=== PATIENT | male | born 1955 | race Caucasian/White ===

== ENCOUNTER 2020-01-31 21:18 | Inpatient (IN) | payer MEDICAID, SELFPAY ==
[~2020-01-31] VITALS: Ht 172.7 cm; Wt 81.6 kg
--- NOTE | 2020-01-31 21:18 | NUR ---
NERY FARFAN TAKEN TO BED 10
[2020-01-31] MEDS ORDERED: NACL 0.9% 1,000 ML IV ONE (21:30)
[2020-01-31 21:36] VITALS: BP 120/83
--- NOTE | 2020-01-31 21:36 | NUR ---
IN BED 10 , WAS BIBA, C/O ALOC, CONFUSION, COVID (+). PT IS RESTLESS AND UNCOOPERATIVE. 20G NOTED RIGHT HAND WITH NS
--- NOTE | 2020-01-31 21:51 | NUR ---
pt placed on high flow nasal cannula 40l/100%. dr. wolff aware.will cont to monitor
[2020-01-31 22:09] LABS: HEMOGLOBIN 16.2 g/dL (12.0-18.0); MEAN CORPUSCULAR HEMOGLOBIN 31 pg (27-31); MEAN CORPUSCULAR HGB CONC 32 g/dL (33-37); MEAN CORPUSCULAR VOLUME 94.8 fL (80-94); PLATELET COUNT (AUTO) 451 K/uL (140-450); RED BLOOD CELL COUNT(AUTO) 5.27 MIL/uL (4.20-6.10); RED CELL DISTRIBUTION WIDTH 14.1 % (11.6-13.7); WHITE BLOOD COUNT (AUTO) 20.3 K/uL (4.8-10.8)
[2020-01-31] MEDS ORDERED: ETOMIDATE 20 MG/10 ML VIAL IVP ONE (22:18)
--- NOTE | 2020-01-31 22:20 | NUR ---
HAS BECOME INCREASINGLY RESTLESS AND CONFUSED, PULLED IV OUT. 18G ESTABLISHED RIGHT A/C. NS BOLUS BEGUN. BG = HIGH. RR = 60 BPM. IS FEBRILE AND RESTLESS. DR. MILLER PREPARING FOR CENTRAL LINE INSERTION
--- NOTE | 2020-01-31 22:22 | NUR ---
verbal order from dr. bains to obtain stat abg. abg is 7.37,23.9,49.5,13.6. results shown to dr. bains
[2020-01-31] MEDS ORDERED: NOREPINEPHRINE 4 MG/4 ML VIAL IV ONE (22:23)
[2020-01-31] MEDS ORDERED: VANCOMYCIN 1GM/DEXT 5% PREMIX 200 ML IV ONE (22:30)
[2020-01-31] MEDS ORDERED: VANCOMYCIN PER PHARMACY MC PRN (22:30)
[2020-01-31] MEDS ORDERED: PIPERACILLIN/TAZOBACTAM 3.375 GM in DEXTROSE 5% 50 ML IV ONE (22:30)
[2020-01-31] MEDS ORDERED: AZITHROMYCIN 500 MG in DEXTROSE 5% 250 ML IV ONE (22:30)
[2020-01-31 22:40] LABS: ALBUMIN 2.6 g/dL (3.4-5.0); ANION GAP 31.2 (8-16); ASPARTATE AMINOTRANSFERASE 48 U/L (15-37); CARBON DIOXIDE 16.9 mmol/L (21-32); CHLORIDE 105 mmol/L (98-107); FREE T4 (FREE THYROXINE) 1.28 ng/dL (0.76-1.46); GFR ARICAN-AMERICAN 44 mL/min (>90); SODIUM SERUM 147 mmol/L (136-145); THYROID STIMULATING HORMONE 0.09 uIU/mL (0.34-3.74); TOTAL BILIRUBIN 0.7 mg/dL (0.0-1.0); UREA NITROGEN, BLOOD 50 mg/dL (7-18)
--- NOTE | 2020-01-31 22:40 | NUR ---
preparing for intubation. ETOMIDATE AND SUCCINYLCHOLINE ORDERED
--- NOTE | 2020-01-31 22:45 | NUR ---
INTUBATED 8FR., 24CM TO THE LIP PACED ON BUR 20, VT 500CC, PEEP 8CM, FIO2 100%
[2020-01-31] MEDS ORDERED: PROPOFOL 1000 MG/100 ML PREMIX 100 ML IV ONE (22:50)
[2020-01-31 22:55] VITALS: BP 142/101
[2020-01-31 22:55] LABS: ACETAMINOPHEN < 0.5 ug/ml (10-30); GLUCOSE 831 mg/dL (74-106); POTASSIUM 6.1 mmol/L (3.5-5.1); SALICYLATE < 2.8 mg/dL (2.8-20.0)
--- NOTE | 2020-01-31 22:57 | NUR ---
PATIENT INTUBATED BY DR. BECKMAN. 8.0 @ 24 CM. VENT PLUGGED INTO BED OUTLET. BMV AT BEDSIDE. ETT SECURED. ALARMS SET. WILL CONT TO MONITOR
--- NOTE | 2020-01-31 23:00 | NUR ---
PROPOFOL BEGUN AT 5MCG/KG/MIN
[2020-01-31] MEDS ORDERED: INSULIN REGULAR, HUMAN 100 UNIT in NACL 0.9% 100 ML IV ONE ×2 (23:05)
[2020-01-31] MEDS ORDERED: CALCIUM GLUCONATE 10% 1000 MG/10 ML VIAL IVP ONE (23:05)
[2020-01-31] MEDS ORDERED: INSULIN REGULAR, HUMAN 100 UNIT/ML VIAL IV SCH (23:05)
[2020-01-31] MEDS ORDERED: ALBUTEROL 0.083% 2.5 MG/3 ML NEBU INH ONE (23:05)
--- NOTE | 2020-01-31 23:05 | NUR ---
PROPOFOL INCREASED TO 10 MCG./KG/MIN
[2020-01-31 23:07] LABS: LYMPHOCYTES % (MANUAL) 2 % (20-46); MONOCYTES % (MANUAL) 6 % (5-12)
--- NOTE | 2020-01-31 23:10 | NUR ---
PROPOPFOL INCREASED TO 15 MCG/KG/MIN
--- NOTE | 2020-01-31 23:15 | NUR ---
PROPOFOL INCREASED TO 20 MCG/KG/MIN
[2020-01-31 23:18] LABS: CKMB RELATIVE INDEX 0.9 (0.0-2.5); CREATINE KINASE MB 4.7 ng/mL (0-3.6)
--- NOTE | 2020-01-31 23:20 | NUR ---
PROPOFOL INCREASED TO 25 MCG/KG/MIN
--- NOTE | 2020-01-31 23:25 | NUR ---
PROPOFOL INCREASED TO 30 MCG/KG/MIN
[2020-02-01 00:14] LABS: PROTHROMBIN TIME 12.7 secs (10.8-13.4)
[2020-02-01 00:18] LABS: C-REACTIVE PROTEIN QUANT 9.1 mg/dL (0.0-0.9)
--- NOTE | 2020-02-01 00:26 | NUR ---
INC RATE TO [address] MILLER AWARE
[2020-02-01] MEDS ORDERED: NACL 0.9% 1,000 ML IV ONE ×3 (00:55→01:50)
--- NOTE | 2020-02-01 00:58 | NUR ---
PROPOFOL INCREASED TO 50 MCG/KG/MIN
--- NOTE | 2020-02-01 01:00 | NUR ---
F/C INSERTED WITH IMMEDIATE RETURN ADINA COLORED URINE
[2020-02-01] MEDS ORDERED: ALBUTEROL HFA MDI 90 MCG/ACTUATION 8 GM INH PRN (01:50)
[2020-02-01] MEDS ORDERED: ONDANSETRON 4 MG/2 ML VIAL IM/IVP PRN (01:50)
[2020-02-01] MEDS ORDERED: INSULIN REGULAR, HUMAN 100 UNIT/ML VIAL IVP SCH (01:50)
[2020-02-01] MEDS ORDERED: HYDROcodone/APAP 7.5/325 MG 1 TAB PO PRN (01:50)
[2020-02-01] MEDS ORDERED: ALBUTEROL SULFATE/IPRATROPIU 3 ML SOL IH PRN ×2 (01:50)
[2020-02-01] MEDS ORDERED: INSULIN REGULAR, HUMAN 100 UNIT in NACL 0.9% 100 ML IV SCH ×2 (01:50)
[2020-02-01] MEDS ORDERED: DOCUSATE SODIUM 100 MG GELCAP PO PRN (01:50)
[2020-02-01] MEDS ORDERED: POTASSIUM CHLORIDE 10 MEQ TABER PO PRN (01:50)
[2020-02-01] MEDS: NACL 0.9% 1,000 ML IV SCH ×4 (02:00→14:34)
[2020-02-01] MEDS: ALBUTEROL SULFATE/IPRATROPIU 3 ML SOL IH SCH ×5 (02:00→23:40)
[2020-02-01] MEDS ORDERED: PROPOFOL 1000 MG/100 ML PREMIX 100 ML IV ONE ×2 (02:43→05:20)
[2020-02-01 03:22] LABS: APPEARANCE,URINE CLEAR (CLEAR); BILIRUBIN,URINE NEGATIVE (NEGATIVE); BLOOD, URINE 2+ (NEGATIVE); COLOR,URINE YELLOW (YELLOW); LEUKOCYTE ESTERASE ,URINE NEGATIVE (NEGATIVE); NITRITE, URINE NEGATIVE (NEGATIVE); PH,URINE 5.5 (5.0-9.0); UGLUCOSE 3+ (NEGATIVE)
[2020-02-01 03:32] LABS: RBC,URINE 0-5 /HPF (0-5)
--- NOTE | 2020-02-01 04:00 | NUR ---
PROPOFOL CONTINUES. PT SEDATED. ASSISTED WITH POSITIONING. F/C DRAINING ADINA COLORED URINE.
[2020-02-01 04:47] LABS: ANION GAP 29.5 (8-16); CARBON DIOXIDE 15.5 mmol/L (21-32); CREATININE 2.3 mg/dL (0.6-1.3)
[2020-02-01] MEDS ORDERED: ALBUTEROL 0.083% 2.5 MG/3 ML NEBU INH ONE (05:26)
[2020-02-01] MEDS ORDERED: ALBUTEROL 0.083% 2.5 MG/3 ML NEBU INH SCH ×2 (05:30→05:50)
--- NOTE | 2020-02-01 05:32 | NUR ---
Adama valenzuela in [facility] - 02/01/[address] at [address] MILLER INSERTING RIGHT FEMORAL TRIPLE LUMEN CATHETER.
[2020-02-01 05:43] LABS: MAGNESIUM 3.2 mg/dL (1.8-2.4)
[2020-02-01 05:44] LABS: PHOSPHORUS 7.9 mg/dL (2.5-4.9)
--- NOTE | 2020-02-01 06:15 | NUR ---
INSULIN DRIP BEGUN AT 8U/HR
[2020-02-01] MEDS ORDERED: INSULIN REGULAR, HUMAN 100 UNIT in NACL 0.9% 100 ML IV ONE ×2 (06:50)
[2020-02-01] MEDS ORDERED: ALBUTEROL SULFATE/IPRATROPIU 3 ML SOL IH SCH (07:00)
[2020-02-01] MEDS: BUDESONIDE 0.5 MG/2 ML NEBU INH SCH (07:02)
[2020-02-01] MEDS ORDERED: LACTATED RINGERS 500 ML IV ONE (07:05)
[2020-02-01] MEDS ORDERED: LACTATED RINGERS 1,000 ML IV ONE (07:05)
[2020-02-01] MEDS ORDERED: BUDESONIDE 0.25 MG/2 ML NEBU INH SCH (07:30)
[2020-02-01] MEDS ORDERED: cefTRIAXone 1,000 MG VIAL ONE (07:34)
[2020-02-01] MEDS ORDERED: PIPERACILLIN/TAZOBACTAM 3.375 GM VIAL IV ONE ×2 (08:17→16:08)
[2020-02-01] MEDS ORDERED: MIDAZOLAM MDV 50 MG in NACL 0.9% 40 ML IV PRN (08:25)
--- NOTE | 2020-02-01 08:29 | NUR ---
NOTIFIED DR SARABIA OF PT BS OF HIGH READING PER DR SARABIA TO KEEP INSULIN DRIP AT 8 UNIT/HR UNTIL PT BLOOD SUGAR IS 200., THEN PLACE AT 4UNIT AT 200 BLOOD GLUCOSE. ALSO SWITCH NORMAL SALINE TO D5 1/2NS (TITRATE TO KEEP BS BETWEEN 150-250)
--- NOTE | 2020-02-01 08:34 | NUR ---
PER DR SARABIA TO ONLY HAVE 3L TOTAL BOLUSED FROM PREVIOUS MEDICATIONS ORDERED. THEN START NORMAL SALINE AT 250
--- NOTE | 2020-02-01 08:42 | NUR ---
REVIEWED ABG SAMPLE REPORT WITH DR. TOMMIE CASTAÑEDA DIAGNOSTIC MONITOR SATURATION 90%-91% SAMPLE REPORT 92% POST ABG PUNCTURE CENTRIFUGAL EXTRACTOR OPERATOR INCREASED FIO2 TO 80% ERMD AWARE AND STATED "OK" NO NEW ORDERS FROM ERMD
[2020-02-01 08:43] LABS: CHOL/HDL RATIO 6.9 (1-4.5)
[2020-02-01 08:43] LABS: MAGNESIUM 2.9 mg/dL (1.8-2.4); PHOSPHORUS 6.5 mg/dL (2.5-4.9)
[2020-02-01 08:55] LABS: CREATININE 3.2 mg/dL (0.6-1.3)
--- NOTE | 2020-02-01 08:59 | NUR ---
NOTIFIED DR SARABIA OF PT DROPPING BLOOD PRESSURE, STATES TO START LEVOPHED DOUBLE CONCENTRATION DRIP.
[2020-02-01] MEDS ORDERED: ACETAMINOPHEN 325 MG SUPP RC SCH (09:00)
--- NOTE | 2020-02-01 09:01 | NUR ---
PHARMACY CALLED, STATES THEY WILL BRING LEVOPHED DRIP MEDICATION SOON THEY CAN
[2020-02-01] MEDS ORDERED: MIDAZOLAM MDV 100 MG in NACL 0.9% 80 ML IV PRN (09:05)
--- NOTE | 2020-02-01 09:30 | NUR ---
DR SARABIA AWARE OF DVT IN LEFT POPLITEAL AND CALF VEINS. STATES WILL PUT IN ORDER FOR HEPARIN
[2020-02-01 10:12] LABS: ANION GAP 22.4 (8-16); POTASSIUM 6.4 mmol/L (3.5-5.1)
--- NOTE | 2020-02-01 10:35 | NUR ---
DR SARABIA MADE AWARE OF CRITICAL VALUES OF K, BUN, CALCIUM, AND CREAT RATHER THAN DR CASTAÑEDA
--- NOTE | 2020-02-01 11:00 | NUR ---
PER DR SARABIA WILL NOT GO WITH HEPARIN DRIP, IS OKAY WITH ORDERED LOVENOX FOR DVT
[2020-02-01] MEDS ORDERED: VANCOMYCIN 1,000 MG VIAL ONE (11:28)
--- NOTE | 2020-02-01 11:30 | NUR ---
COURTESY CALL TO DR. IVONE GILLIS REVIEWED ABG SAMPLE REPORT NEW ORDER: TITRATED FIO2 KEEP SATURATION GREATER THAN 88%
[2020-02-01] MEDS: ENOXAPARIN 80 MG/0.8 ML SYR SUBQ SCH (11:47)
[2020-02-01 13:12] LABS: ANION GAP 20.7 (8-16); CARBON DIOXIDE 20.9 mmol/L (21-32); CREATININE 2.6 mg/dL (0.6-1.3); POTASSIUM 5.6 mmol/L (3.5-5.1)
[2020-02-01 13:13] LABS: MAGNESIUM 2.8 mg/dL (1.8-2.4); PHOSPHORUS 5.8 mg/dL (2.5-4.9)
[2020-02-01] MEDS ORDERED: AZITHROMYCIN 500 MG INJ VIAL IV ONE (14:12)
--- NOTE | 2020-02-01 14:15 | NUR ---
SATURATION 87%-88% ON FIO2 OF 90% PEEP 8cmH2O INCREASED FIO2 TO 100% KERMIT/RN NOTIFIED
--- NOTE | 2020-02-01 14:45 | NUR ---
PER PHARMACY OKAY TO START ZOSYN LONG MORE THAN 4 HOUR GAP
[2020-02-01] MEDS: AZITHROMYCIN 250 MG TAB PO SCH (14:50)
[2020-02-01] MEDS: ASCORBIC ACID 500 MG TAB PO SCH (14:50)
[2020-02-01] MEDS: ZINC SULF 220 MG CAP PO SCH (14:50)
--- NOTE | 2020-02-01 14:51 | NUR ---
PT DOES NOT HAVE NGT FOR [address] SARABIA MADE AWARE, WILL BE PLACING NGT AND ORDERING CXR PER DR SARABIA. PER DR CORNELL MENDOSA THAT 0900 MEDS NOT GIVEN,
[2020-02-01] MEDS ORDERED: ACETAMINOPHEN 325 MG SUPP RC ONE (15:47)
--- NOTE | 2020-02-01 16:18 | NUR ---
PER DR SARABIA TO INSULIN DRIP 4UNIT/HR AND RUN D5 1/2 NORMAL SALINE, TITRATE BY 25ML/HR TO KEEP BLOOD SUGAR ABOVE 150.
[2020-02-01] MEDS: PIPERACILLIN/TAZOBACTAM 3.375 GM in DEXTROSE 5% 50 ML IV SCH ×2 (16:32→21:00)
[2020-02-01 16:36] LABS: BARBITURATE, URINE NEGATIVE ng/ml (NEG <=200); BENZODIAZEPINE, URINE NEGATIVE ng/mL (NEG <=200); CANNABINOID, URINE NEGATIVE ng/mL (NEG <=50); COCAINE, URINE NEGATIVE ng/mL (NEG <=300); OPIATE, URINE NEGATIVE ng/mL (NEG <=2000); PHENCYCLIDINE SCREEN,URINE NEGATIVE ng/mL (NEG <=25)
[2020-02-01] MEDS: DEXT 5% / NACL 0.45% 1,000 ML IV SCH ×2 (17:37→22:17)
--- NOTE | 2020-02-01 17:51 | NUR ---
DR SARABIA MADE AWARE PT TEMP 103.5, COOLING MEASURES APPLIED TO EXTREMITIES
[2020-02-01] MEDS ORDERED: IBUPROFEN 400 MG TAB PO SCH (17:55)
--- NOTE | 2020-02-01 18:00 | NUR ---
PIPE FITTER SUPERVISOR REVIEWED E MAR AT 0640 NO DOUNEB INDICATED FOR DAYS 0700/1100/1500 NOT GIVEN ENDORSED TO NOC SHIFT
--- NOTE | 2020-02-01 18:08 | NUR ---
ORAL GASTRIC TUBE 16F PLACED AT THIS TIME, WAITING FOR CHEST XRAY TO CONFIRM PLACEMENT
--- NOTE | 2020-02-01 18:23 | NUR ---
700ML OF CLEAR ADINA URINE DRAINED FROM WEST CATHETER
--- NOTE | 2020-02-01 18:31 | NUR ---
DR SARABIA INFORMED ABOUT PT CHEST APPEARING ENLARGED, STATES HE WILL WAIT FOR CXR TOMORROW
[2020-02-01] MEDS ORDERED: IBUPROFEN 400 MG TAB ONE (18:32)
--- NOTE | 2020-02-01 18:41 | NUR ---
TEMP 102.7, MOTRIN 400MG GIVEN PER DR SARABIA REQUEST
[2020-02-01 18:55] LABS: MAGNESIUM 2.6 mg/dL (1.8-2.4)
[2020-02-01 19:01] LABS: ANION GAP 16.4 (8-16); CARBON DIOXIDE 24.7 mmol/L (21-32); CREATININE 2.6 mg/dL (0.6-1.3)
--- NOTE | 2020-02-01 19:20 | NUR ---
PROPOFOL CHARTED IN IV SPREADSHEET IS IN MCG/KG/MIN, NOT ML/HR. NOREPINEPHRINE CHARTED IN IV SPREADSHEET IS IN MCG/HR, NOT ML/HR
--- NOTE | 2020-02-01 19:21 | NUR ---
REPORT RECEIVED FROM KERMIT CHARLES
--- NOTE | 2020-02-01 19:31 | NUR ---
RECEIVED PT ON 100% FIO2, SATURATION 99, TITRATED TO 90%, PT WAS PEAK PRESSURING OVER 50 CMH2O, TITRATED PEEP TO 6, TO HELP PREVENT EXCESSIVE PRESSURE WILL CONTINUE TO MONITOR IF NEEDED WILL TITRATE BACK TO PEEP OF 8, AND SWITCH TO PRESSURE CONTROL, DR WILL BE NOTIFIED IF MODE IS SWITCHED.
[2020-02-01 19:38] LABS: POTASSIUM 6.1 mmol/L (3.5-5.1)
--- NOTE | 2020-02-01 19:51 | NUR ---
PT REMAINS INTUBATED, RECEIVING NOREPI AT 10 MCG, PROPROFAL 65 MCG, INSULIN 4 UNIT, AND D5 1/2 NS AT 25ML/HR. RASS -3. PT REMAINS ON BEDSIDE MONITOR HR 133, O2 SAT 95%, RESP 32, TEMP 100.9, B/P 125/31
--- NOTE | 2020-02-01 20:00 | NUR ---
LAB AT BEDSIDE
--- NOTE | 2020-02-01 20:20 | NUR ---
LAB CALLED WITH CRITICAL VALUES POTASSIUM 6.1, BUN [address] SARABIA MADE AWARE
[2020-02-01] MEDS: ACETAMINOPHEN 325 MG TAB PO PRN (20:35)
[2020-02-01 20:45] LABS: ANION GAP 17.5 (8-16); CARBON DIOXIDE 23.5 mmol/L (21-32); CREATININE 2.8 mg/dL (0.6-1.3); MAGNESIUM 2.6 mg/dL (1.8-2.4); PHOSPHORUS 5.7 mg/dL (2.5-4.9)
--- NOTE | 2020-02-01 20:50 | NUR ---
SPOKE TO DR. BURRIS REGARDING CRITICAL ABG. WANTED ORDERS TO TITRATE TIDAL VOLUME TO 450 AND INCREASE PEEP TO 8. FIOS ALSO TITRATED TO 80%. PATIENT VITAL REMAINS STABLE. WILL CONT TO MONITOR
[2020-02-01] MEDS ORDERED: VANCOMYCIN 750 MG in NACL 0.9% 250 ML IV SCH (21:00)
--- NOTE | 2020-02-01 21:42 | NUR ---
CURRENT TEMP 98.9. PT HAS BED IN ICU WILL CALL FOR REPORT.
[2020-02-01] MEDS: BLOOD GLUCOSE MONITORING 1 DEV DEV FS SCH ×3 (21:47→23:00)
[2020-02-01] MEDS ORDERED: AMMONIA AROMATIC 1 INHL INH ONE (22:00)
--- NOTE | 2020-02-01 22:51 | NUR ---
Patient will be admitted to care of DR SARABIA. Admited to ICU. Will go to room 131B. Belongings list completed. Report to WALE CHARLES.
[2020-02-01] MEDS ORDERED: NOREPINEPHRINE 4 MG/4 ML VIAL IV ONE (23:24)
[2020-02-01 23:40] VITALS: BP 64/47
[2020-02-02] VITALS (27 sets, daily range): BP systolic 76–118; BP diastolic 47–86
[2020-02-02] MEDS: PHENYLEPHRINE 40 MG in NACL 0.9% 250 ML IV PRN ×3 (00:45→21:00)
[2020-02-02] MEDS ORDERED: PHENYLEPHRINE 10 MG/ML VIAL ONE ×2 (00:47→05:43)
--- NOTE | 2020-02-02 01:23 | NUR ---
PER DAVID RT, DR. BURRIS WANTS NO CHANGES ON VENT PER ABG RESULTS
[2020-02-02 01:25] LABS: ANION GAP 18.9 (8-16); CARBON DIOXIDE 21.6 mmol/L (21-32); CREATININE 3.5 mg/dL (0.6-1.3)
[2020-02-02 01:32] LABS: POTASSIUM 6.5 mmol/L (3.5-5.1)
[2020-02-02 01:46] LABS: MAGNESIUM 1.9 mg/dL (1.8-2.4); PHOSPHORUS 6.8 mg/dL (2.5-4.9)
[2020-02-02] MEDS: NACL 0.9% 1,000 ML IV SCH ×7 (01:50→21:50)
[2020-02-02] MEDS: NOREPINEPHRINE 8 MG in DEXTROSE 5% 250 ML IV PRN ×3 (02:00→15:14)
--- NOTE | 2020-02-02 02:00 | NUR ---
NOTIFIED DR. SARABIA, ABOUT K+ 6.1; AND PTS LOW BP; NEW ORDERS RECEIVED.CARRIED OUT
[2020-02-02] MEDS ORDERED: SODIUM ZIRCONIUM CYCLOSILICATE 10 GM POWD.PACK PO SCH (02:35)
[2020-02-02] MEDS: PROPOFOL 1000 MG/100 ML PREMIX 100 ML IV PRN ×2 (02:58→16:17)
--- NOTE | 2020-02-02 04:47 | NUR ---
DR. BURRIS DID NOT WANT 0400 ABG. WILL ENDORSE TO DAY SHIFT FOR 0800 ABG
[2020-02-02] MEDS: PIPERACILLIN/TAZOBACTAM 3.375 GM in DEXTROSE 5% 50 ML IV SCH ×3 (05:00→21:00)
[2020-02-02] MEDS: ALBUTEROL SULFATE/IPRATROPIU 3 ML SOL IH SCH ×3 (07:09→15:00)
[2020-02-02] MEDS: BUDESONIDE 0.5 MG/2 ML NEBU INH SCH (07:09)
[2020-02-02 07:49] LABS: ALBUMIN 1.9 g/dL (3.4-5.0); ANION GAP 21.8 (8-16); CARBON DIOXIDE 18.8 mmol/L (21-32); CREATININE 3.4 mg/dL (0.6-1.3); TOTAL BILIRUBIN 0.5 mg/dL (0.0-1.0)
[2020-02-02 08:00] LABS: CARBON DIOXIDE 23.4 mmol/L (21-32)
[2020-02-02 08:09] LABS: CREATININE 3.4 mg/dL (0.6-1.3)
[2020-02-02 08:11] LABS: ANION GAP 16.2 (8-16); POTASSIUM 6.6 mmol/L (3.5-5.1)
[2020-02-02 08:21] LABS: MAGNESIUM 1.9 mg/dL (1.8-2.4); PHOSPHORUS 6.9 mg/dL (2.5-4.9)
[2020-02-02 08:28] LABS: POTASSIUM 6.6 mmol/L (3.5-5.1)
[2020-02-02] MEDS: BLOOD GLUCOSE MONITORING 1 DEV DEV FS SCH ×16 (08:49→23:50)
[2020-02-02] MEDS: ENOXAPARIN 80 MG/0.8 ML SYR SUBQ SCH (09:00)
[2020-02-02] MEDS: AZITHROMYCIN 250 MG TAB PO SCH (09:09)
[2020-02-02] MEDS: ZINC SULF 220 MG CAP PO SCH (09:09)
[2020-02-02] MEDS: ASCORBIC ACID 500 MG TAB PO SCH (09:09)
[2020-02-02] MEDS: ACETAMINOPHEN 325 MG TAB PO PRN ×2 (10:27→16:17)
--- NOTE | 2020-02-02 10:30 | NUR ---
PT WITH FEVER 100.8, TYENOL GIVEN
--- NOTE | 2020-02-02 11:00 | NUR ---
ABG RESULTS GIVEN TO , NEW VENT SETTINGS AC 26, VT 500ml, PEEP 8 AND FIO2 100%.
[2020-02-02 13:24] LABS: BASOPHILS % (AUTO) 0.2 % (0.0-2.0); HEMATOCRIT 44.6 % (36-52); HEMOGLOBIN 14.2 g/dL (12.0-18.0); LYMPHOCYTES # (AUTO) 1.7 K/uL (2.0-11.5); LYMPHOCYTES % (AUTO) 6.9 % (20.5-51.1); MEAN CORPUSCULAR HEMOGLOBIN 31 pg (27-31); MEAN CORPUSCULAR HGB CONC 32 g/dL (33-37); MEAN CORPUSCULAR VOLUME 95.9 fL (80-94); MONOCYTES # (AUTO) 0.9 K/uL (0.8-1.0); MONOCYTES % (AUTO) 3.8 % (1.7-9.3); NEUTROPHILS # (AUTO) 22.4 K/uL (1.8-7.7); NEUTROPHILS % (AUTO) 89.1 % (42.2-75.2); PLATELET COUNT (AUTO) 56 K/uL (140-450); RED BLOOD CELL COUNT(AUTO) 4.65 MIL/uL (4.20-6.10); RED CELL DISTRIBUTION WIDTH 14.6 % (11.6-13.7)
[2020-02-02 13:26] LABS: MAGNESIUM 2.1 mg/dL (1.8-2.4); PHOSPHORUS 8.1 mg/dL (2.5-4.9)
[2020-02-02 13:33] LABS: WHITE BLOOD COUNT (AUTO) 25.1 K/uL (4.8-10.8)
[2020-02-02 13:43] LABS: ANION GAP 18.4 (8-16); CARBON DIOXIDE 23.2 mmol/L (21-32); CREATININE 3.3 mg/dL (0.6-1.3); POTASSIUM 6.6 mmol/L (3.5-5.1)
--- NOTE | 2020-02-02 14:22 | NUR ---
ABG RESULTS GIVEN TO , NEW VENT SETTINGS AC 28, VT525, PEEP 8 AND FIO2 100%. WILL NOTIFY FOREIGN LANGUAGE TEACHER.
--- NOTE | 2020-02-02 14:35 | NUR ---
DR GARCIA AT BEDSIDE, PHONE CALL MADE TO AND SONS, DISCUSSED NEED FOR DIALYSIS. THEY WILL CALL BACK WITH DECISION.
--- NOTE | 2020-02-02 14:50 | NUR ---
ADMINISTERED 10 UNIT HUMULIN R IVP, D50, SODIUM BICARBONATE, CALCIUM CHLORIDE IVP PER DR GARCIA ORDERS.
--- NOTE | 2020-02-02 14:52 | NUR ---
ABG RESULTS GIVEN TO AND PT STATUS EXPLAINED TO PHYSICIAN. PHYSICIAN STATES SHE WILL BE IN TO ASSESS PT AND MAKE VENT CHANGES.
[2020-02-02] MEDS ORDERED: SODIUM BICARBONATE 8.4% PFS 50 MEQ/50 ML SYR IVP SCH (15:00)
[2020-02-02] MEDS ORDERED: INSULIN REGULAR, HUMAN 100 UNIT/ML VIAL IVP SCH (15:00)
[2020-02-02] MEDS ORDERED: DEXTROSE 50% 50 ML SYR IVP SCH (15:00)
[2020-02-02] MEDS ORDERED: CALCIUM CHLORIDE 10% 1,000 MG in NACL 0.9% 100 ML IV SCH (15:00)
--- NOTE | 2020-02-02 15:28 | NUR ---
BEDSIDE AND MADE CHANGES TO VENT. SETTINGS: PC Pinsp27, R24, PEEP 8 AND FIO2 100%. WILL CONTINUE TO MONITOR.
[2020-02-02] MEDS ORDERED: fentaNYL citrate 1 MG in NACL 0.9% 80 ML IV PRN (15:30)
--- NOTE | 2020-02-02 15:55 | NUR ---
DR WEBB AT BEDSIDE, ORDERS RECEIVED
[2020-02-02] MEDS ORDERED: CALCIUM CHLORIDE 10% 100 MG/ML SYR IVP ONE (16:08)
--- NOTE | 2020-02-02 16:15 | NUR ---
PT WITH FEVER 101.8, TYENOL GIVEN
[2020-02-02 17:16] LABS: ANION GAP 17.8 (8-16); CARBON DIOXIDE 20.9 mmol/L (21-32); MAGNESIUM 2.1 mg/dL (1.8-2.4); PHOSPHORUS 7.5 mg/dL (2.5-4.9); POTASSIUM 5.7 mmol/L (3.5-5.1)
[2020-02-02] MEDS ORDERED: hePARIN / DEXT 5% PREMIX 250 ML IV PRN (17:25)
[2020-02-02] MEDS ORDERED: HEPARIN PER PHARMACY MC PRN (17:25)
--- NOTE | 2020-02-02 17:32 | NUR ---
ABG RESULTS GIVEN TO PHYSICIAN STATES NO CHANGES TO BE MADE TO VENT AT THIS TIME. WILL CONTINUE TO MONITOR.
[2020-02-02 17:36] LABS: CREATININE 4.5 mg/dL (0.6-1.3)
--- NOTE | 2020-02-02 20:05 | NUR ---
NOTIFIED FATUMA YE, PLATELET 57, ORDER FOR HEPARIN DRIP DC'D; WILL CONTINUE LOVENOX, WILL CONTINUE TO OBSERVE.
[2020-02-02 20:49] LABS: ANION GAP 18.1 (8-16); CARBON DIOXIDE 22.7 mmol/L (21-32); POTASSIUM 5.8 mmol/L (3.5-5.1)
[2020-02-02 21:49] LABS: CREATININE 4.9 mg/dL (0.6-1.3)
--- NOTE | 2020-02-02 23:53 | NUR ---
NOTIFIED DR Bernice GARCIA, THAT NEW HD CATH PUT IN PLACE BY DR. GOFF. UPDATED MD ABOUT CURRENT CONDITION. MD STATED TO HAVE PT DIALYSED IN AM FOR NOW DUE TO UNSTABLE BP. WILL CONTINUE TO OBSERVE.
--- NOTE | 2020-02-02 23:53 | NUR ---
SPOKE WITH DR. GOFF, REGARDING HD CATH PLACEMENT. 2330: @ bedside for HD CATH PLACEMENT 5000 UNIT HEPARIN USED FOR PROCEDURE. NEW RIJ HD CATH PLACED. PT TOLERATED FAIR. WILL CONTINUE TO OBSERVE.
[2020-02-03] VITALS (14 sets, daily range): BP systolic 71–97; BP diastolic 46–63
[2020-02-03] MEDS ORDERED: VASOPRESSIN 20 UNITS in NACL 0.9% 250 ML IV SCH (00:15)
[2020-02-03] MEDS: PROPOFOL 1000 MG/100 ML PREMIX 100 ML IV PRN (00:45)
[2020-02-03] MEDS: BLOOD GLUCOSE MONITORING 1 DEV DEV FS SCH ×9 (00:50→08:50)
[2020-02-03 01:00] LABS: ANION GAP 19.1 (8-16); CARBON DIOXIDE 20.6 mmol/L (21-32)
[2020-02-03 01:01] LABS: PHOSPHORUS 6.9 mg/dL (2.5-4.9)
[2020-02-03 01:08] LABS: CREATININE 5.4 mg/dL (0.6-1.3)
[2020-02-03 01:09] LABS: POTASSIUM 5.7 mmol/L (3.5-5.1)
[2020-02-03] MEDS: NACL 0.9% 1,000 ML IV SCH ×3 (01:50→09:50)
[2020-02-03] MEDS: ACETAMINOPHEN 325 MG TAB PO PRN (04:00)
[2020-02-03] MEDS: NOREPINEPHRINE 8 MG in DEXTROSE 5% 250 ML IV PRN (04:30)
[2020-02-03] MEDS: PIPERACILLIN/TAZOBACTAM 3.375 GM in DEXTROSE 5% 50 ML IV SCH (05:19)
[2020-02-03] MEDS: PHENYLEPHRINE 40 MG in NACL 0.9% 250 ML IV PRN (05:22)
[2020-02-03] MEDS: DEXTROSE 50% 50 ML SYR IVP PRN ×4 (05:24→09:25)
--- NOTE | 2020-02-03 05:40 | NUR ---
DR CARLIN SNOWDEN ALONG W/ DR PRAFLU SNOWDEN PENDING CALL BACK TO REPORT CRITICAL ABG PH [phone] CO2 44.9 PO2 59.8 HCO3 15.8 BE -12.5
--- NOTE | 2020-02-03 06:16 | NUR ---
ABG DONE BY NOC SHIFT @0587 RT ABG RESULTS GIVEN TO OVER PHONE. PHYSICIAN STATES NO NEW CHANGES AT THIS TIME.
[2020-02-03] MEDS ORDERED: VASOPRESSIN 20 UNITS/ML VIAL ONE (06:44)
[2020-02-03 06:49] LABS: BASOPHILS % (AUTO) 0.1 % (0.0-2.0); EOSINOPHILS % (AUTO) 0.1 % (0.0-4.0); HEMATOCRIT 41.9 % (36-52); HEMOGLOBIN 13.5 g/dL (12.0-18.0); LYMPHOCYTES # (AUTO) 1.1 K/uL (2.0-11.5); LYMPHOCYTES % (AUTO) 4.6 % (20.5-51.1); MEAN CORPUSCULAR HEMOGLOBIN 31 pg (27-31); MEAN CORPUSCULAR HGB CONC 32 g/dL (33-37); MEAN CORPUSCULAR VOLUME 94.6 fL (80-94); MONOCYTES # (AUTO) 0.7 K/uL (0.8-1.0); NEUTROPHILS # (AUTO) 21.1 K/uL (1.8-7.7); NEUTROPHILS % (AUTO) 92.2 % (42.2-75.2); RED BLOOD CELL COUNT(AUTO) 4.43 MIL/uL (4.20-6.10); RED CELL DISTRIBUTION WIDTH 14.7 % (11.6-13.7); WHITE BLOOD COUNT (AUTO) 22.8 K/uL (4.8-10.8)
[2020-02-03] MEDS: ALBUTEROL SULFATE/IPRATROPIU 3 ML SOL IH SCH ×2 (07:18→11:01)
[2020-02-03] MEDS: BUDESONIDE 0.5 MG/2 ML NEBU INH SCH (07:18)
[2020-02-03 07:21] LABS: PLATELET COUNT (AUTO) 51 K/uL (140-450)
--- NOTE | 2020-02-03 07:45 | NUR ---
0645 BS CHECKED 69; X 1 D50 GIVEN, RECHECKED @ 0700 BS 60 X1 D50 GIVEN, RECHECKED @ 0715 BS 91. 0720: PT HYPOTENSIVE VASOPRESSIN STARTED @ 0.01 UNITS/MIN TITRATED TO KEEP SBP>90, 0750 TITRATED PER PROTOCOL, INCREASED TO 0.03 UNITS/MIN.
[2020-02-03 07:47] LABS: ALBUMIN 1.3 g/dL (3.4-5.0); ANION GAP 17.7 (8-16); TOTAL BILIRUBIN 0.5 mg/dL (0.0-1.0)
[2020-02-03 07:52] LABS: PHOSPHORUS 7.7 mg/dL (2.5-4.9)
[2020-02-03 08:07] LABS: CREATININE 5.8 mg/dL (0.6-1.3); POTASSIUM 6.7 mmol/L (3.5-5.1)
[2020-02-03] MEDS: ASCORBIC ACID 500 MG TAB PO SCH (08:13)
[2020-02-03] MEDS: ZINC SULF 220 MG CAP PO SCH (08:14)
[2020-02-03] MEDS: AZITHROMYCIN 250 MG TAB PO SCH (08:14)
--- NOTE | 2020-02-03 08:15 | NUR ---
SPOKE WITH DR. CASTELLANOS; UPDATED REGARDING PT CONDITION. NOTIFIED OF LOW BLOOD SUGAR AND LOW BP ON 2 PRESSORS, ADDING VASPORESSIN. NO NEW ORDERS WILL CONTINUE TO OBSERVE.
[2020-02-03] MEDS ORDERED: DEXAMETHASONE 4 MG TAB PO SCH (09:00)
--- NOTE | 2020-02-03 09:08 | NUR ---
PATIENT HAS BEEN SCREENED AND CATEGORIZED HIGH NUTRITION RISK. PATIENT WILL BE SEEN WITHIN 1-2 DAYS OF ADMISSION. 02/03/[address]
[2020-02-03] MEDS ORDERED: EPINEPHrine 1:1000 (1 mg/mL) 1 MG in DEXTROSE 5% 250 ML IV PRN (09:40)
[2020-02-03] MEDS ORDERED: DEXTROSE 10% 1,000 ML IV SCH (09:40)
--- NOTE | 2020-02-03 09:49 | NUR ---
SPOKE WITH DR BURRIS AND NOTIFIED ABOUT LOW BP WITH 3 MAX PRESSORS; STATED TO START EPI DRIP. ALSO ORDERED D10 @50 ML/HR FOR LOW BLOOD SUGAR.
--- NOTE | 2020-02-03 10:39 | NUR ---
DR CASTELLANOS MADE AWARE OF BS 26 AND 36 ON GLUCOSE READING OF R HAND, RECHECKED ON L HAND 456. STATED TO GET LAB DRAW BMP. WILL CARRY OUT ORDERS.
--- NOTE | 2020-02-03 10:41 | NUR ---
ENDORSED CARE TO LIBBY CHARLES
[2020-02-03 11:28] LABS: ANION GAP 22.9 (8-16); CARBON DIOXIDE 16.9 mmol/L (21-32)
[2020-02-03 11:32] LABS: CREATININE 5.8 mg/dL (0.6-1.3); POTASSIUM 6.8 mmol/L (3.5-5.1)
--- NOTE | 2020-02-03 11:40 | NUR ---
STARTED EPI DRIP 4MCG/MIN ORDERED. SBP 70-80
--- NOTE | 2020-02-03 11:50 | NUR ---
BLOOD SUGAR ON LEFT HAND 458
--- NOTE | 2020-02-03 12:00 | NUR ---
SBP 50-60. EPI DRIP NOW AT 7MCG/MIN. HR 97, O2SAT 91%
--- NOTE | 2020-02-03 12:10 | NUR ---
ASYSTOLE ON MONITOR, NO PALPABLE PULSE. CALLED CODE BLUE
--- NOTE | 2020-02-03 12:12 | NUR ---
PHONE CALL MADE TO PT'S SON, JANICE, TO NOTIFY OF PT'S CONDITION, CODE BLUE, CPR IN PROGRESS, CONFIRMED FULL CODE.
--- NOTE | 2020-02-03 12:18 | NUR ---
TIME OF 1218. PRONOUNCED BY DR. PAT MOORE
--- NOTE | 2020-02-03 12:30 | NUR ---
FAMILY NOTIFIED OF PT'S PASSING
--- NOTE | 2020-02-03 12:40 | NUR ---
CALLED [facility]. RELEASE #[id number]
--- NOTE | 2020-02-03 14:00 | NUR ---
TALENT ACQUISITION SPECIALIST RELEASED BODY PER FARM TRUCK DRIVERSHERIFF SCARLETT MORANON
--- NOTE | 2020-02-03 15:00 | NUR ---
REMAINS TRANSFERRED TO [facility] [place]
[2020-02-04 07:12] LABS: HEPATITIS A ANTIBODY IGM Negative (Negative); HEPATITIS B CORE AB TOTAL Negative (Negative); HEPATITIS B SURFACE ANTIBODY Non Reactive (.); HEPATITIS B SURFACE ANTIGEN Negative (Negative)
== END 2020-02-03 12:18 | DRG 720 ==
LOC: MED 21:18 → MTU 02-01 01:48 → MMU 02-01 21:22
PROVIDERS: ADMIT Emergency Medicine; ATTEND Emergency Medicine
PROC: 0BH17EZ Insertion of Endotracheal Airway into Trachea, Via Natural or Artificial Opening (ICD-10-PCS; 2020-02-01)
PROC: 5A1945Z Respiratory Ventilation, 24-96 Consecutive Hours (ICD-10-PCS; 2020-02-01)
PROC: 5A1D70Z Performance of Urinary Filtration, Intermittent, Less than 6 Hours Per Day (ICD-10-PCS; principal; 2020-02-02)
PROC: 02H633Z Insertion of Infusion Device into Right Atrium, Percutaneous Approach (ICD-10-PCS; 2020-02-02)
PROC: B548ZZA Ultrasonography of Superior Vena Cava, Guidance (ICD-10-PCS; 2020-02-02)
PROC: 5A12012 Performance of Cardiac Output, Single, Manual (ICD-10-PCS; 2020-02-03)
DX: A41.9 Sepsis, unspecified organism (principal); G93.41 Metabolic encephalopathy; I82.402 Acute embolism and thrombosis of unspecified deep veins of left lower extremity; N17.0 Acute kidney failure with tubular necrosis; J96.01 Acute respiratory failure with hypoxia; R65.21 Severe sepsis with septic shock; E11.10 Type 2 diabetes mellitus with ketoacidosis without coma; E87.5 Hyperkalemia; E87.1 Hypo-osmolality and hyponatremia; U07.1 COVID-19; J12.89 Other viral pneumonia; Z20.828 Contact with and (suspected) exposure to other viral communicable diseases; Z86.19 Personal history of other infectious and parasitic diseases; N18.30 Chronic kidney disease, stage 3 unspecified; I12.9 Hypertensive chronic kidney disease with stage 1 through stage 4 chronic kidney disease, or unspecified chronic kidney disease
CPT/HCPCS: 31500; 36415; 36556; 36600; 51702; 71045; 80048; 80053; 80202; 80305; 81001; 82140; 82550; 82553; 82728; 82803; 82948; 83036; 83605; 83615; 83690; 83735; 83880; 83930; 84100; 84439; 84443; 84484; 85025; 85379; 85384; 85610; 85651; 85730; 86140; 86704; 86706; 86708; 86709; 86803; 87040; 87081; 87086; 87340; 93005; 93971; 94002; 94003; 94640; 99291; G0480; G0482; J0171; J0456; J0610; J0696; J1644; J1650; J1815; J2250; J2370; J2543; J2704; J3010; J3370; J3490; J7030; J7060; J7613; J7626; U0003